=== PATIENT | female | born 1970 | race Caucasian/White ===

== ENCOUNTER 2016-07-14 10:43 | Emergency (ER) | payer MEDICAID, OTHER ==
[~2016-07-14] VITALS: Ht 165.1 cm; Wt 66.5 kg
[~2016-07-14 10:43] MED LIST: ACET-66 PO; NOCURR
[2016-07-14] MEDS ORDERED: LEVO75TA4 PO (10:50)
[2016-07-14 11:06] VITALS: BP 136/87
[2016-07-14] MEDS ORDERED: MethylPREDNISolone SOD SUCC 125 MG/2 ML VIAL IVP ONE (11:15)
[2016-07-14] MEDS ORDERED: DiphenhydrAMINE HCL 25 MG CAPSULE PO ONE (11:15)
[2016-07-14] MEDS ORDERED: MethylPREDNISolone SOD SUCC 125 MG/2 ML VIAL IM ONE (11:30)
== END 2016-07-14 11:43 | disposition home or self-care (01) ==
LOC: EMS 10:44
DX: T63.441A Toxic effect of venom of bees, accidental (unintentional), initial encounter (principal); E03.9 Hypothyroidism, unspecified; X58.XXXA Exposure to other specified factors, initial encounter; Y93.89 Activity, other specified; Y92.89 Other specified places as the place of occurrence of the external cause; Y99.8 Other external cause status
CPT/HCPCS: 96372; 99283; J2930

== ENCOUNTER 2018-09-11 21:53 | Emergency (ER) | payer OTHER ==
[~2018-09-11] VITALS: Ht 165.1 cm; Wt 67.3 kg
[~2018-09-11 21:53] MED LIST changes: -ACET-66 PO; +LEVO75TA4 PO; -NOCURR
[2018-09-12] MEDS ORDERED: BUPIVACAINE HCL/PF 0.25% 10 ML VIAL INJ ONE (02:45)
[2018-09-12 04:08] VITALS: BP 132/65
== END 2018-09-12 04:11 | disposition home or self-care (01) ==
LOC: EMS 21:53
DX: L03.011 Cellulitis of right finger (principal); E03.9 Hypothyroidism, unspecified
CPT/HCPCS: 10060; 99283; J3490

== ENCOUNTER 2020-12-31 14:27 | Emergency (ER) | payer OTHER ==
[~2020-12-31] VITALS: Ht 162.6 cm; Wt 67.7 kg
[2020-12-31 14:47] VITALS: BP 126/75
== END 2020-12-31 16:07 | disposition home or self-care (01) ==
LOC: EMS 14:27
DX: M25.561 Pain in right knee (principal)
CPT/HCPCS: 29515; 99283